=== PATIENT | male | born 1985 | race Caucasian/White ===

== ENCOUNTER 2017-12-09 09:46 | Observation (INO) ==
[2017-12-09] MEDS ORDERED: *HR* HYDROmorphone (PF) 1 MG/ML SYRINGE IVP PRN (12:24)
[2017-12-09] MEDS ORDERED: *HR* OxyCODONE/APAP 5/325 TABLET PO PRN ×2 (12:24→18:08)
[2017-12-09] MEDS ORDERED: *HR* HYDROcodone/Acet 5/325 mg TABLET PO PRN (12:24)
[2017-12-09] MEDS ORDERED: Naloxone 0.4 MG/ML INJ IVP PRN ×2 (12:24→18:08)
[2017-12-09] MEDS ORDERED: Ondansetron 4 MG/2 ML VIAL IVP PRN ×3 (12:24→18:08)
[2017-12-09] MEDS ORDERED: 0.9 % Sodium Chloride 1,000 ML IVC SCH ×2 (12:30→18:08)
--- NOTE | 2017-12-09 12:34 | Urology History & Physical ---
Date of Encounter: 12/09/17 Time of Encounter: 12:32 Assessment and Plan (1) Penile abscess Current Visit: Yes Status: Acute needs admission. start vancomycin. plan for drainage and debridement today. History of Present Illness Chief complaint: penile swelling HPI: Mr. Villar is a 32 year old male returns to office for increasing penile swelling and pain despite ABX. 5 days ago experienced pain and swelling after intercourse. large hematoma ruptured through skin drained but did not completely resolve. mild fever. Review of Systems - Constitutional fever(s), malaise - EENT Nose, mouth and throat: no dizziness - Cardiovascular no chest pain - Respiratory no cough - Gastrointestinal no abdominal pain, no nausea - Genitourinary genital pain - Musculoskeletal no back pain - Integumentary swelling - Neurological no confusion - Psychiatric no anxiety - Hematologic/Lymphatic no easy bleeding - Allergic/Immunologic no throat swelling Exam Initial Vital Signs Temp Pulse Resp BP Pulse Ox 98.4 F 83 13 123/72 97 12/09/17 12:29 12/09/17 12:29 12/09/17 12:29 12/09/17 12:29 12/09/17 12:29 - General physical appearance Present: well developed, no distress, moderate pain - Eyes Present: PERRL - ENT Present: normal nares - Neck Present: no masses, no lymphadenopathy - Respiratory Present: normal respiratory effort - Cardiovascular Cardiovascular exam IM: RRR - Abdomen Abdomen: Present: soft. Absent: masses, suprapubic tenderness - Genitourinary Penis: Present: edema (3-4 cm area of likely abscess with black eschar over the area. proximal shaft is normal. edema concnetrated to dorsal aspect foreskin. ) - Integumentary Present: no rash - Neurologic Present: normal coordination. Absent: disoriented, confused - Musculoskeletal Present: normal gait Urology Results - Labs All other labs normal.
[2017-12-09] MEDS ORDERED: *HR* OxyCODONE Immed Rel 5 MG TABLET PO PRN ×2 (12:43→16:46)
[2017-12-09] MEDS ORDERED: Vancomycin 1,000 MG in D5% in Water 250 ML IVPB ONE ×2 (13:00→14:00)
[2017-12-09 13:22] LABS: BUN/Creatinine Ratio 8 (6-26); Blood Urea Nitrogen 8 mg/dL (6-20); Calcium 9.7 mg/dL (8.6-10.3); Carbon Dioxide 28 mEq/L (23-29); Chloride 104 mEq/L (98-107); Glucose 99 mg/dL (70-105); Osmolality,Calculated 278 (280-300); Potassium 4.5 mEq/L (3.5-5.1); Sodium 135 mEq/L (136-145); eGFR For African Americans > 60 (> 60); eGFR For Non-African Americans > 60 (> 60)
[2017-12-09] MEDS ORDERED: Vancomycin 1,000 MG in D5% in Water 250 ML IVPB SCH (14:05)
[2017-12-09 14:21] LABS: Basophils # 0.1 K/mcL (0.0-0.2); Basophils % 0.5 %; Eosinophils # 0.3 K/mcL (0.0-0.6); Eosinophils % 2.3 %; Hematocrit 48.1 % (37.5-50.1); Hemoglobin 15.8 g/dL (12.9-16.9); Immature Granulocytes % 0.4 % (0-4); Lymphocytes # 2.9 K/mcL (0.6-4.6); Lymphocytes % 26.6 %; Mean Corpuscular HGB Conc 32.8 g/dL (31.6-35.5); Mean Corpuscular Hemoglobin 28.4 pg (28.0-33.3); Mean Corpuscular Volume 86.4 fL (83.0-100.0); Mean Platelet Volume 11.2 fL (9.4-12.4); Monocytes # 0.5 K/mcL (0.0-1.3); Monocytes % 4.7 %; Neutrophils # 7.2 K/mcL (1.6-8.9); Platelet Count 259 K/mcL (140-400); Red Blood Count 5.57 M/mcL (4.19-5.50); Red Cell Distribution Width 13.6 % (11.5-14.5); Segmented Neutrophils % 65.5 %
--- NOTE | 2017-12-09 15:58 | Anesthesia Evaluation PreOp ---
Date of Encounter: 12/09/17 Time of Encounter: 15:56 - Past History Planned Operation: I & D Penile Abscess Cardiac History: Denies any Significant Hx Pulmonary History: Smoker (17 years), Asthma DUMPCART DRIVER History: Denies Any Significant HX Other Medical History: Denies Any Significant HX Anesthesia History: No Prior Anesthetic Complications, Past Anesthesia Alcohol Use: occasionally Drug use: none Medications and Allergies Cyclobenzaprine [Flexeril] 10 mg PO TID PRN 12/09/17 [History] Etodolac [Etodolac] 400 mg PO BID 12/09/17 [History] Gabapentin [Neurontin] 300 mg PO TID 12/09/17 [History] Sulfamethoxazole/Trimeth DS [Bactrim DS] 1 tab PO BID 12/09/17 [History] 3 Allergy/AdvReac Type Severity Reaction Status Date / Time acetaminophen [From Vicodin] Allergy Hives Verified 12/09/17 12:39 Amoxicillin Allergy Hives Verified 12/09/17 12:39 hydrocodone [From Vicodin] Allergy Hives Verified 12/09/17 12:39 - Meds/Allergy Pre-op Review Medications Reviewed: Yes Allergies Reviewed: Yes Beta Blockers on Current Med List: No Anesthesia Results - Labs 12/09/17 12:59 12/09/17 12:59 Anesthesia Exam Vital Signs/O2 Sat, Most Current Temp Pulse Resp BP Pulse Ox 98.4 F 83 13 123/72 97 12/09/17 12:29 12/09/17 12:29 12/09/17 12:29 12/09/17 12:29 12/09/17 12:29 Height: 5'6''/1.68 m Weight: 143 lbs/64.9 kg NPO (# of Hours): 8 Pain Scale: 0 Pain Scale Used: Numeric (1 - 10) - HEENT Pupil (Motor): EOMI Mallampati: II Teeth: Normal Oral Opening: Greater than 3 - DUMPCART DRIVER LOC: Oriented DUMPCART DRIVER Motor: Normal RUE, Normal LUE, Normal RLE, Normal LLE, Normal Face DUMPCART DRIVER Sensory: Normal: RUE, LUE, RLE, LLE, Face - Cardiac Rhythm: Regular Murmur: None - Pulmonary Breath Sounds: bilateral Clear Respiratory Effort: Symmetrical Anesthesia Assess/Plan ASA Score: 2 Modified [place] Scale for Level of Consciousness: Cooperative, oriented, and tranquil Anesthetic Plan: General Monitoring Plan: Standard Monitors Recovery Plan: PACU
[2017-12-09] MEDS ORDERED: Lidocaine 1% 20 ML MDV ONE (16:11)
--- NOTE | 2017-12-09 16:18 | Operative Note ---
Date of procedure: 12/09/17 Pre-op diagnosis: penile abscess Post-op diagnosis: same Procedure: incision/drainage/debridement of penile abscess Anesthesia: LAILA Surgeon: Maxx Tom Was there an process assistant present: No Estimated blood loss (cc): 10 Specimen: culture and tissue Condition: stable Disposition: PACU Procedure in Detail: Patient was brought to the operating room and positioned supine on the operating table. Anesthesia was a probable complication. Timeout was performed confirming proper patient and procedure. 3-4 cm in diameter abscess with eschar on the dorsal aspect of the penis and foreskin. On palpation of this area. Once was seen emanating from the sides. I unroofed the necrotic tissue using tenotomy scissors. The purulent fluid was cultured. Tissue samples were sent for culture. I was able to debride down to what appeared to be bleeding granulation tissue. Biopsies of the area were taken to verify no malignancy or abnormal pathology. There is no area to pack as there was no pocket. I eventually placed Xeroform and wrapped with a Ryan. I was able to retract the foreskin to see the glans was not involved. It actually appeared that the edema and erythema had decreased with vancomycin. Dorsal and penile ring block was performed with approximately 15 mL of 2% lidocaine without epinephrine.
[2017-12-09] MEDS ORDERED: MORPHINE SUL Oral CONC 10 MG/0.5 ML ORAL.SYG SL PRN (16:46)
[2017-12-09] MEDS ORDERED: *HR* FentaNYL (PF) 100 MCG/2 ML VIAL ONE (17:03)
[2017-12-09] MEDS ORDERED: Dexamethasone 4 MG/ML VIAL ONE (17:03)
[2017-12-09] MEDS ORDERED: Ondansetron 4 MG/2 ML VIAL ONE (17:03)
[2017-12-09] MEDS ORDERED: *HR* Propofol 200 MG/20 ML VIAL IVP ONE (17:03)
[2017-12-09] MEDS ORDERED: *HR* Midazolam HCl 2 MG/2 ML VIAL ONE (17:03)
[2017-12-09] MEDS ORDERED: Lidocaine -MPF 2% 2 ML VIAL ONE (17:03)
[2017-12-09] MEDS ORDERED: Ketorolac 30 MG/ML VIAL ONE (17:03)
--- NOTE | 2017-12-09 17:32 | Anesthesia Evaluation Post Op ---
Date of Encounter: 12/09/17 Time of Encounter: 17:30 - Vital Signs Vital Signs: Vital Signs/O2 Sat/Glucose, Most Recent Temp Pulse Resp BP Pulse Ox 97.1 F L 63 16 117/74 100 12/09/17 17:27 12/09/17 17:27 12/09/17 17:27 12/09/17 17:27 12/09/17 17:27 - Lungs Lungs: Clear Ascult./Percussion - Airway Airway: Non-obstructed - Cardiovascular Regular Rate - Mental Status Mental Status: Alert & Oriented, Answers Appropriately - Pain Pain Scale: 0 Pain Scale used: Numeric (1 - 10) - Nausea Vomiting Nausea Vomiting: Not Present - Hydration Hydration: Ice chips, Has not voided Notes: 12/09/17 17:31 AAOx3,VSS with no complaints - Discharge PostOp Status: Transfer Patient to floor
[2017-12-09] MEDS ORDERED: Ketorolac 30 MG/ML VIAL IVP PRN (18:08)
[2017-12-09 18:56] VITALS: BP 112/66
[2017-12-09] MEDS ORDERED: Gabapentin 300 MG CAPSULE PO SCH (21:00)
[2017-12-09] MEDS ORDERED: Aminoglycoside Consult 1 EACH MC ONE (21:21)
[2017-12-10] MEDS ORDERED: Vancomycin 1,000 MG in D5% in Water 250 ML IVPB SCH (02:00)
--- NOTE | 2017-12-12 17:44 | Event Note ---
Date of Encounter: 12/12/17 Time of Encounter: 17:43 I was contacted by nursing staff on evening of december 09. Patient left AMA. Patient was not evaluated by myself before he left.
== END 2017-12-09 21:22 | disposition left against medical advice (07) | DRG 501 ==
LOC: 3ANU
PROVIDERS: ADMIT Urology; ATTEND Urology
PROC: [UNRECOGNIZED PROCEDURE] (2017-12-09 17:30)